=== PATIENT | female | born 1950 | race Caucasian/White ===

== ENCOUNTER 2016-07-12 20:54 | Emergency (ER) | payer OTHER ==
[~2016-07-12] VITALS: Ht 172.7 cm; Wt 104.3 kg
[2016-07-12] MEDS ORDERED: REMERON15 MG PO (21:04)
[2016-07-12] MEDS ORDERED: REQUIP0.5 MG PO (21:05)
[2016-07-12] MEDS ORDERED: SENNA CONCENTR8.6 MG PO (21:06)
[2016-07-12] MEDS ORDERED: ZOLOFT50 MG PO (21:06)
[2016-07-12] MEDS ORDERED: DESYREL150 MG PO (21:06)
[2016-07-12] MEDS ORDERED: ACETAMINOPHEN325 MG PO (21:07)
[2016-07-12] MEDS ORDERED: ALBUTEROL2.5 MG/0.5 INH (21:09)
[2016-07-12] MEDS ORDERED: CHLORASEPTIC S1 EACH MM (21:09)
[2016-07-12] MEDS ORDERED: ELIQUIS5 MG PO (21:09)
[2016-07-12] MEDS ORDERED: BISACODYL SUPP10 MG RECTAL (21:09)
[2016-07-12] MEDS ORDERED: MILK OF MA2400 MG/10 PO (21:10)
[2016-07-12] MEDS ORDERED: LEVOTHYROXINE 0.15MG PO (21:10)
[2016-07-12] MEDS ORDERED: METHOCARBAMOL750 MG PO (21:10)
[2016-07-12] MEDS ORDERED: MIRALAX17 GM PO (21:10)
[2016-07-12] MEDS ORDERED: ONDANSETRON ODT4 MG PO (21:11)
[2016-07-12] MEDS ORDERED: OXYCONTIN10 M1 PO (21:11)
[2016-07-12] MEDS ORDERED: PRAVACHOL40 MG PO (21:11)
[2016-07-12] MEDS ORDERED: NORCO 5-325 TA1 EACH PO (21:58)
[2016-07-12 22:50] VITALS: BP 135/83
== END 2016-07-12 23:11 | disposition home or self-care (01) ==
LOC: ER 20:54
DX: S82.832A Other fracture of upper and lower end of left fibula, initial encounter for closed fracture (principal); S09.90XA Unspecified injury of head, initial encounter; M25.462 Effusion, left knee; Z90.710 Acquired absence of both cervix and uterus; Z88.0 Allergy status to penicillin; Z88.2 Allergy status to sulfonamides; W18.09XA Striking against other object with subsequent fall, initial encounter; Y93.89 Activity, other specified; Y92.89 Other specified places as the place of occurrence of the external cause; Y99.8 Other external cause status

== ENCOUNTER → 2018-06-19 | Outpatient (CLI) | payer OTHER, MEDICAID ==
[~2018-06-19] MED LIST: ACETAMINOPHEN325 MG PO; ALBUTEROL2.5 MG/0.5 INH; BISACODYL SUPP10 MG RECTAL; CHLORASEPTIC S1 EACH MM; DESYREL150 MG PO; ELIQUIS5 MG PO; LEVOTHYROXINE 0.15MG PO; METHOCARBAMOL750 MG PO; MILK OF MA2400 MG/10 PO; MIRALAX17 GM PO; NORCO 5-325 TA1 EACH PO; ONDANSETRON ODT4 MG PO; OXYCONTIN10 M1 PO; PRAVACHOL40 MG PO; REMERON15 MG PO; REQUIP0.5 MG PO; SENNA CONCENTR8.6 MG PO; ZOLOFT50 MG PO
== END ==
LOC: RAD 12:10
DX: R06.02 Shortness of breath (principal); R06.2 Wheezing